=== PATIENT | female | born 1945 | race Caucasian/White ===

== ENCOUNTER 2019-06-17 07:51 | Day surgery (SDC) | payer MEDICARE ==
[2019-06-16 16:36] VITALS: BMI 29.2
[~2019-06-17 07:51] MED LIST: Fentanyl 100 MCG/2 ML VIAL ONE; SUGAMMADEX SODIUM 200 MG/2 ML VIAL ONE
[2019-06-17] MEDS ORDERED: Thrombin 5000 UNITS/5 ML VIAL ONE (08:56)
[2019-06-17] MEDS ORDERED: Sodium Chloride 0.9% 10 ML ONE (08:56)
[2019-06-17] MEDS ORDERED: Bacitracin Zinc Ointment 30 gm TUBE ONE (08:56)
[2019-06-17] MEDS ORDERED: Scopolamine 1.5 mg/72 hour Patch ONE (08:59)
[2019-06-17 09:09] LABS: INR-International Normal Ratio 1.1; PTT 32.1 SEC (22.9-36.1); Prothrombin Time 14.5 SEC (12.0-14.7)
[2019-06-17] MEDS ORDERED: ePHEDrine/0.9% NaCl/PF SYRINGE 50 mg/10 ml ONE (11:20)
[2019-06-17] MEDS ORDERED: Promethazine HCl 25 MG/ML VIAL IM PRN (12:36)
[2019-06-17] MEDS ORDERED: Ketorolac Tromethamine 30 MG/ML VIAL IVP PRN (12:36)
[2019-06-17] MEDS ORDERED: HYDROmorphone 2 MG/ML VIAL SLOW IVP PRN (12:36)
[2019-06-17] MEDS ORDERED: Promethazine HCl 25 MG/ML VIAL SLOW IVP PRN (12:36)
[2019-06-17] MEDS ORDERED: Ondansetron HCl/PF 4 MG/2 ML Vial IVP PRN (12:36)
[2019-06-17] MEDS ORDERED: Meperidine HCl/PF 25 MG/ML VIAL SLOW IVP PRN (12:36)
[2019-06-17] MEDS ORDERED: Fentanyl 100 MCG/2 ML VIAL ONE (12:38)
[2019-06-17] MEDS ORDERED: Morphine 2 MG/ML SYRINGE SLOW IVP PRN (13:12)
[2019-06-17] MEDS ORDERED: Bisacodyl 10 MG SUPP PR PRN (13:12)
[2019-06-17] MEDS ORDERED: Ondansetron PF 4 MG/2 ML Vial IVP PRN (13:12)
[2019-06-17] MEDS ORDERED: traMADol HCl 50 MG TAB PO PRN (13:12)
[2019-06-17] MEDS ORDERED: HYDROcodone/Acetaminophen 7.5/325 mg Tablet PO PRN (13:12)
[2019-06-17] MEDS ORDERED: Mag-Al 1200 mg/1200 mg/30 ML UDCUP PO PRN (13:12)
[2019-06-17] MEDS ORDERED: tiZANidine HCl 4 MG TAB PO PRN (13:12)
[2019-06-17] MEDS ORDERED: Fleet Enema 133 ML BOT PR PRN (13:12)
[2019-06-17] MEDS ORDERED: Milk Of Magnesia 30 ML UDCUP PO PRN (13:12)
[2019-06-17] MEDS ORDERED: Acetaminophen 325 MG TAB PO PRN (13:12)
[2019-06-17] MEDS ORDERED: Acetaminophen/Codeine 30-300mg Tablet PO PRN (13:12)
[2019-06-17] MEDS ORDERED: Fluticasone Propionate Nasal Spray 16 gm Bottle NASAL PRN (13:15)
[2019-06-17] MEDS: Sodium Chloride 0.9% 1,000 ML IV SCH (15:24)
[2019-06-17] MEDS: CEFAZOLIN 2 GM in Premix Bag 1 BAG IVPB SCH (17:26)
[2019-06-17] MEDS: Carvedilol 6.25 MG TAB PO SCH (20:11)
[2019-06-17] MEDS ORDERED: Loratadine 10 MG TAB PO SCH (21:00)
[2019-06-18] MEDS: CEFAZOLIN 2 GM in Premix Bag 1 BAG IVPB SCH (01:38)
[2019-06-18] MEDS: Sodium Chloride 0.9% 1,000 ML IV SCH (03:42)
[2019-06-18 08:35] VITALS: BP 117/78; TEMP 98.7
[2019-06-18] MEDS: Carvedilol 6.25 MG TAB PO SCH (08:35)
[2019-06-18] MEDS ORDERED: Multivit, Therapeutic 1 TAB PO SCH (09:00)
[2019-06-18] MEDS ORDERED: Prevnar 13-Val Conj/PF 0.5 ML SYRINGE IM ONE (09:00)
[2019-06-18] MEDS ORDERED: Losartan/Hydrochlorothiazide 100 mg/25 mg Tablet PO SCH (09:00)
--- NOTE | 2019-06-18 09:00 | PRG ---
DATE OF SERVICE: 06/18/2019 Ms. Godinez is postoperative day 1 from L2 to L5 laminectomy. She has done very well postoperatively with resolution of her leg pain. She is mobilizing and voiding. We will plan to dismiss her. I went over interim postoperative issues. Job ID: [id number]
--- NOTE | 2019-06-18 10:55 | OP ---
DATE OF PROCEDURE: 06/18/2019 PREOPERATIVE DIAGNOSIS: Lumbar stenosis. POSTOPERATIVE DIAGNOSIS: Lumbar stenosis. PROCEDURES PERFORMED: L2-L3, L3-L4, L4-L5 laminectomies, partial facetectomies, and foraminotomies. DESCRIPTION OF PROCEDURE: After informed consent was obtained from the patient, the patient was brought to the OR. Proper patient, pause, and identification were carried out. She was placed under excellent general endotracheal anesthesia and positioned prone on the OR table. All appropriate points were padded. A linear flor was made over the L2, L3, L4, and L5 dorsal spines and lamina and this region was sterilely cleansed, prepared, and draped. Proper patient, pause, and identification were carried out. The wound was then opened with combination of sharp, monopolar, and blunt dissection, and the L2, L3, L4, and L5 dorsal spines and lamina were exposed. These localization confirmed our area of interest. We then performed L2, L3, L4, and L5 laminectomies, partial facetectomies, and foraminotomies. We then copiously irrigated the wound throughout and maximized hemostasis. The wound was then closed in anatomic layers following sprinkling of vancomycin powder. The patient was then emerged from anesthesia. Job ID: [id number]
== END 2019-06-18 12:00 | disposition home or self-care (01) ==
LOC: SDC 07:51 → UNDOADMOB 14:13 → SJJU 14:13 → UNDODISOB 06-18 12:00 → SDC 06-18 12:00
PROVIDERS: ATTEND Surgery
PROC: 01NB0ZZ Release Lumbar Nerve, Open Approach (ICD-10-PCS; principal; 2019-06-18)
DX: M48.062 Spinal stenosis, lumbar region with neurogenic claudication (principal); M54.16 Radiculopathy, lumbar region; I10 Essential (primary) hypertension
CPT/HCPCS: 36415; 76000; 85610; 85730; 93005; 93010; J0131; J0690; J3010; J3370; J3490